=== PATIENT | female | born 1995 | race Two or more races ===

== ENCOUNTER 2023-10-19 10:14 | Outpatient (CLI) | payer OTHER | END 2023-10-19 10:18 | disposition home or self-care (01) | LOC: SONOGRAMA 10:14 | PROVIDERS: ATTEND Pathology Anatomic Pathology & Clinical Pathology | DX: D37.032 Neoplasm of uncertain behavior of the submandibular salivary glands (principal); D11.7 Benign neoplasm of other major salivary glands ==

== ENCOUNTER 2024-02-09 08:00 | Outpatient (CLI) | payer OTHER ==
[~2024-02-09] VITALS: Ht 154.9 cm; Wt 61.2 kg
[2024-02-09 11:34] LABS: URINE APPEARANCE Clear; URINE BILIRRUBIN Negative (NEGATIVE); URINE BLOOD Trace; URINE COLOR Yellow; URINE GLUCOSE Negative (NEGATIVE); URINE KETONE Negative (NEGATIVE); URINE LEUKOCYTE Negative; URINE NITRATE Negative; URINE PROTEIN Negative (NEGATIVE); URINE UROBILINOGEN 0.2 E.U./dl
[2024-02-09 11:38] LABS: URINE BACTERIA 277.1 uL (0.0-1933); URINE EPITHELIAL CELLS 12.4 uL (0.0-38.8); URINE RBC 10.2 uL (0.0-20.8); URINE WBC 13.2 uL (0.0-23.2)
[2024-02-09 11:49] LABS: HEMATOCRIT 38.4 % (36.0-45.00); HEMOGLOBIN 12.9 g/dL (12.0-15.00); MEAN CELL VOLUME 92.2 fL (80.00-100.00); MEAN CORPUSCULAR HEMOGLOBIN 30.9 pg (27.00-32.0); MEAN CORPUSCULAR HGB CONC 33.5 g/dl (32.0-36.0); PLATELET COUNT 191 K/uL (150-450); RED BLOOD COUNT 4.16 M/uL (4.00-6.00)
[2024-02-09 12:06] LABS: INR 1.17; PROTHROMBIN TIME 12.6 SECONDS (9.0-11.5)
[2024-02-09 12:22] LABS: ALBUMIN 3.6 gm/dL (3.4-5.0); BILIRUBIN TOTAL 0.47 mg/dL (0.3-1.2); CALCIUM 8.9 mg/dL (8.5-10.1); CREATININE SERUM 0.56 mg/dL (0.55-1.02); GFR 128.9; GLOBULINA 3.1 G/DL (2.4-3.5); POTASSIUM 4.02 mEq/L (3.5-5.1); TOTAL PROTEIN 6.7 gm/dL (6.4-8.2)
== END 2024-02-09 08:01 | disposition home or self-care (01) ==
LOC: RAD 08:00 → EDSTATUS 02-19 09:15 → SURH 02-19 09:15
PROVIDERS: ATTEND Otolaryngology
DX: D37.032 Neoplasm of uncertain behavior of the submandibular salivary glands (principal); R05.9 Cough, unspecified

== ENCOUNTER 2024-04-08 05:40 | Day surgery (SDC) | payer OTHER ==
[2024-03-29 10:23] LABS: PH,URINE 6.5 (5.0-8.0); URINE APPEARANCE Clear; URINE BILIRRUBIN Negative (NEGATIVE); URINE BLOOD Negative; URINE COLOR Yellow; URINE GLUCOSE Negative (NEGATIVE); URINE KETONE Negative (NEGATIVE); URINE LEUKOCYTE Negative; URINE NITRATE Negative; URINE PROTEIN Negative (NEGATIVE); URINE UROBILINOGEN 0.2 E.U./dl
[2024-03-29 10:23] LABS: HEMATOCRIT 37.7 % (36.0-45.00); HEMOGLOBIN 12.6 g/dL (12.0-15.00); MEAN CELL VOLUME 91.5 fL (80.00-100.00); MEAN CORPUSCULAR HEMOGLOBIN 30.5 pg (27.00-32.0); MEAN CORPUSCULAR HGB CONC 33.3 g/dl (32.0-36.0); PLATELET COUNT 190 K/uL (150-450); RED BLOOD COUNT 4.12 M/uL (4.00-6.00); RED CELL DISTRIBUTION WIDTH 13.9 % (11.5-14.5)
[2024-03-29 10:24] LABS: URINE BACTERIA 1788.1 uL (0.0-1933); URINE EPITHELIAL CELLS 13.4 uL (0.0-38.8); URINE RBC 11.7 uL (0.0-20.8)
[2024-03-29 10:36] VITALS: BP 108/74
[2024-03-29 10:44] LABS: INR 1.13; PARTIAL THROMBOPLASTIN TIME 26.8 SECONDS (22.0-34.0); PROTHROMBIN TIME 12.2 SECONDS (9.0-11.5)
[2024-03-29 11:35] LABS: CALCIUM 8.6 mg/dL (8.5-10.1); CREATININE SERUM 0.6 mg/dL (0.55-1.02); GFR 118.19; POTASSIUM 4.23 mEq/L (3.5-5.1)
[~2024-04-08] VITALS: Ht 154.9 cm; Wt 61.2 kg
[2024-04-08] MEDS ORDERED: DEXAMETHASONE SODIUM PHOSPHATE 4 MG/ML VIAL IV ONE (10:30)
[2024-04-08] MEDS ORDERED: CEFAZOLIN SODIUM 1,000 MG VIAL IV ONE (10:30)
[2024-04-08] MEDS ORDERED: MORPHINE SULFATE 4 MG/ML VIAL IV ONE (12:15)
== END 2024-04-08 16:20 | disposition home or self-care (01) ==
LOC: CIR.AMB 05:40
PROVIDERS: ATTEND Otolaryngology
DX: D37.032 Neoplasm of uncertain behavior of the submandibular salivary glands (principal)